=== PATIENT | female | born 1980 | race Caucasian/White ===

== ENCOUNTER 2018-03-10 12:41 | Emergency (ER) | payer MEDICAID ==
[~2018-03-10] VITALS: Ht 154.9 cm; Wt 134.7 kg
[2018-03-10 12:46] VITALS: Ht 154.9 cm; Wt 134.7 kg
[2018-03-10 16:10] VITALS: BP 158/101
== END 2018-03-10 16:34 | disposition home or self-care (01) ==
LOC: ED 12:41
DX: N93.8 Other specified abnormal uterine and vaginal bleeding (principal); N83.209 Unspecified ovarian cyst, unspecified side; D25.9 Leiomyoma of uterus, unspecified; E66.9 Obesity, unspecified; I10 Essential (primary) hypertension; E78.00 Pure hypercholesterolemia, unspecified; Z68.43 Body mass index [BMI] 50.0-59.9, adult